=== PATIENT | female | born 2000 | race Asian ===

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

== ENCOUNTER 2019-06-02 17:39 | Emergency (ER) | payer OTHER ==
[2019-06-02 19:22] LABS: ABS Basophils 0.1 10^3/ul (0-0.2); ABS Eosinophils 0.1 10^3/ul (0-0.6); ABS Lymphocytes 2.1 10^3/ul (1.0-4.8); ABS Monocytes 0.4 10^3/ul (0-0.8); ABS Neutrophils 5.2 10^3/ul (1.5-7.7); Eosinophil % 1.1 %; Hematocrit 42 % (35-47); Hemoglobin 14.4 g/dL (12.0-16.0); Lymphocyte % 26.7 %; Mean Corpuscular HGB Conc 34 g/dL (31-36); Mean Corpuscular Hemoglobin 33 pg (27-31); Mean Corpuscular Volume 97 fL (80-97); Mean Platelet Volume 8.8 fL (7.4-10.4); Nucleated Red Blood Cells % 0.1; Platelet Count 259 10^3/uL (150-450); Red Blood Count 4.36 10^6 /uL (3.70-4.87); Red Cell Distribution Width 14 % (10-15); White Blood Count 7.9 10^3/uL (3.5-10.8)
[2019-06-02 19:42] LABS: ALT 14 U/L (7-52); AST 18 U/L (13-39); Albumin 4.7 g/dL (3.2-5.2); Albumin/Globulin Ratio 1.9 (1-3); Alkaline Phosphatase 63 U/L (34-104); Anion Gap 7 mmol/L (2-11); BUN/Creatinine Ratio 21.4 (8-20); Blood Urea Nitrogen 18 mg/dL (6-24); C Reactive Protein < 1.00 mg/L (<8.01); CO2 Carbon Dioxide 27 mmol/L (22-32); Chloride 104 mmol/L (101-111); EGFR African American 104.6 (>60); EGFR Non-African American 86.4 (>60); Globulin 2.5 g/dL (2-4); Glucose 89 mg/dL (70-100); Potassium 3.9 mmol/L (3.5-5.0); Sodium 138 mmol/L (135-145); Total Protein 7.2 g/dL (6.4-8.9)
[2019-06-02 19:46] LABS: HCG Pregnancy < 0.60 mIU/mL
--- NOTE | 2019-06-02 19:54 | ED ---
Syncope/Near Syncope - HPI Summary HPI Summary: Patient complains of episodes of lightheadedness, blurred vision and "head pressure" 5 days. Head pressure described as located at top of head and bilateral temples. Patient unaware of any pattern to onset of symptoms. Patient states she did take an Adderall for the first time 6 days ago prior to onset of symptoms. Patient has taken Advil 400 mg today with no relief. Denies fever, cough, sore throat, CP, SOB, N/V/D, abdominal pain, change in urine, change in BM, vaginal symptoms. No new medications, new supplements, new food, new environment, energy drinks, excessive caffeine, EtOH, recreational drug use. Patient does were glasses for distance. Last prescription from 2016. Medical history is none. - History Of Current Complaint Chief Complaint: EDHeadache Time Seen by Provider: 06/02/19 18:38 Hx Obtained From: Patient Onset/Duration: Gradual Onset, Lasting Days Timing: Minutes Activity At Onset: Unknown Associated Head Trauma: No Alleviating Factor(s): Spontaneous Resolution Associated Signs And Symptoms: Lightheadedness - Allergies/Home Medications Allergies/Adverse Reactions: Allergies Allergy/AdvReac Type Severity Reaction Status Date / Time No Known Allergies Allergy Verified 06/02/19 17:44 PMH/Surg Hx/FS Hx/Imm Hx Endocrine/Hematology History: Denies: Hx Anticoagulant Therapy Cardiovascular History: Denies: Hx Hypertension History: Denies: Hx Dialysis Sensory History: Denies: Hx Eye Prosthesis Opthamlomology History: Denies: Hx Legally Blind EENT History: Denies: Hx Deafness Neurological History: Denies: Hx Dementia - Immunization History Immunizations Up to Date: Yes Infectious Disease History: No Infectious Disease History: Denies: Traveled Outside the [place] in Last 30 Days - Family History Known Family History: Negative: Cardiac Disease - Social History Alcohol Use: Weekly Substance Use Type: Reports: None Smoking Status (MU): Never Smoked Tobacco Review of Systems Constitutional: Negative Positive: Blurred Vision ENT: Negative Cardiovascular: Negative Respiratory: Negative Gastrointestinal: Negative Genitourinary: Negative Musculoskeletal: Negative Skin: Negative Positive: Headache Psychological: Normal All Other Systems Reviewed And Are Negative: Yes Physical Exam - Summary Physical Exam Summary: Neuro exam normal. Triage Information Reviewed: Yes Vital Signs On Initial Exam: Initial Vitals Temp Pulse Resp BP Pulse Ox 97.8 F 69 16 123/81 99 11/22/19 17:41 06/02/19 17:41 06/02/19 17:41 06/02/19 17:41 06/02/19 17:41 Vital Signs Reviewed: Yes Appearance: Positive: Well-Appearing Skin: Positive: Warm Head/Face: Positive: Normal Head/Face Inspection Eyes: Positive: Normal ENT: Positive: Normal ENT inspection Neck: Positive: Supple Respiratory/Lung Sounds: Positive: Clear to Auscultation Cardiovascular: Positive: Normal Abdomen Description: Positive: Nontender Musculoskeletal: Positive: Normal Neurological: Positive: Normal Psychiatric: Positive: Normal AVPU Assessment: Alert - Susan Coma Scale Best Eye Response: 4 - Spontaneous Best Motor Response: 6 - Obeys Commands Best Verbal Response: 5 - Oriented Coma Scale Total: 15 Procedures - Sedation Patient Received Moderate/Deep Sedation with Procedure: No Diagnostics - Vital Signs Vital Signs Temp Pulse Resp BP Pulse Ox 06/02/19 17:41 97.8 F 69 16 123/81 99 - Laboratory Lab Results: Lab Results 06/02/19 06/02/19 Range/Units 19:15 19:15 WBC 7.9 (3.5-10.8) 10^3/uL RBC 4.36 (3.70-4.87) 10^6 /uL Hgb 14.4 (12.0-16.0) g/dL Hct 42 (35-47) % MCV 97 (80-97) fL MCH 33 H (27-31) pg MCHC 34 (31-36) g/dL RDW 14 (10-15) % Plt Count 259 (150-450) 10^3/uL MPV 8.8 (7.4-10.4) fL Neut % (Auto) 66.1 % Lymph % (Auto) 26.7 % Gooding % (Auto) 5.3 % Eos % (Auto) 1.1 % Baso % (Auto) 0.8 % Absolute Neuts (auto) 5.2 (1.5-7.7) 10^3/ul Absolute Lymphs (auto) 2.1 (1.0-4.8) 10^3/ul Absolute Monos (auto) 0.4 (0-0.8) 10^3/ul Absolute Eos (auto) 0.1 (0-0.6) 10^3/ul Absolute Basos (auto) 0.1 (0-0.2) 10^3/ul Absolute Nucleated RBC 0.0 10^3/ul Nucleated RBC % 0.1 Sodium 138 (135-145) mmol/L Potassium 3.9 (3.5-5.0) mmol/L Chloride 104 (101-111) mmol/L Carbon Dioxide 27 (22-32) mmol/L Anion Gap 7 (2-11) mmol/L BUN 18 (6-24) mg/dL Creatinine 0.84 (0.51-0.95) mg/dL Est GFR ( Amer) 104.6 (>60) Est GFR (Non-Af Amer) 86.4 (>60) BUN/Creatinine Ratio 21.4 H (8-20) Glucose 89 (70-100) mg/dL Calcium 10.0 (8.6-10.3) mg/dL Total Bilirubin 0.60 (0.2-1.0) mg/dL AST 18 (13-39) U/L ALT 14 (7-52) U/L Alkaline Phosphatase 63 (34-104) U/L C-Reactive Protein < 1.00 (<8.01) mg/L Total Protein 7.2 (6.4-8.9) g/dL Albumin 4.7 (3.2-5.2) g/dL Globulin 2.5 (2-4) g/dL Albumin/Globulin Ratio 1.9 (1-3) TSH Pending Beta HCG, Quant < 0.60 mIU/mL Result Diagrams: 06/02/19 19:15 06/02/19 19:15 Lab Statement: Any lab studies that have been ordered have been reviewed, and results considered in the medical decision making process. Course/Dx Course Of Treatment: Patient complains of episodes of lightheadedness, blurred vision and "head pressure" 5 days. Head pressure described as located at top of head and bilateral temples. Patient unaware of any pattern to onset of symptoms. Patient states she did take an Adderall for the first time 6 days ago prior to onset of symptoms. Patient has taken Advil 400 mg today with no relief. Denies fever, cough, sore throat, CP, SOB, N/V/D, abdominal pain, change in urine, change in BM, vaginal symptoms. No new medications, new supplements, new food, new environment, energy drinks, excessive caffeine, EtOH , recreational drug use. Patient does were glasses for distance. Last prescription from 2017. Medical history is none. Vital signs within normal limits. Labs unremarkable. EKG sinus bradycardia, heart rate 56, no prior on file. Patient states history of low heart rate. Patient advised to follow-up with ophthalmology for review prescription and with primary care. deferred CT brain at this tijme - Diagnoses Provider Diagnoses: Headache, Lightheadedness, Blurry vision Discharge ED - Sign-Out/Discharge Documenting (check all that apply): Patient Departure - Discharge Plan Condition: Stable Disposition: HOME Patient Education Materials: Acute Headache (ED), Blurred Vision (ED) Referrals: [facility] - Lalit LOZANO [Primary Care Provider] - Benson Merida MD [Medical Doctor] - Additional Instructions: Follow-up with ophthalmology Dr. Merida for further evaluation of vision. Alternate ibuprofen 400 mg with Tylenol 650 mg every 3 hours as needed for headache. Drinking any fluids to maintain hydration. Return to the ED for any new or worsening symptoms. - Billing Disposition and Condition Condition: STABLE Disposition: Home
[2019-06-02 20:01] VITALS: BP 97/64
[2019-06-02 20:24] LABS: TSH (Thyroid Stimulating Horm) 1.43 mcIU/mL (0.34-5.60)
== END 2019-06-02 20:03 | disposition home or self-care (01) ==
LOC: ED 17:39
DX: R42 Dizziness and giddiness (principal); R51 Headache; H53.8 Other visual disturbances
CPT/HCPCS: 36415; 80053; 84443; 84702; 85025; 86140; 93005; 99282

== ENCOUNTER 2019-09-19 18:44 | Inpatient (IN) | payer OTHER ==
[2019-09-19 19:35] LABS: Urine Appearance Cloudy; Urine Bilirubin Negative (Negative); Urine Blood Negative (Negative); Urine Color Yellow; Urine Glucose Negative (Negative); Urine Ketones Trace (Negative); Urine Nitrite Negative (Negative); Urine Protein Negative (Negative); Urine Specific Gravity 1.017 (1.010-1.030); Urine Urobilinogen Negative (Negative)
[2019-09-19 19:37] LABS: Urine Bacteria Absent (Absent); Urine Red Blood Cell Absent (Absent); Urine Squamous Epithelial Cell Present (Absent); Urine White Blood Cell 1+(6-10/hpf) (Absent)
[2019-09-19 19:39] LABS: ABS Lymphocytes 1.8 10^3/ul (1.0-4.8); ABS Monocytes 0.6 10^3/ul (0-0.8); ABS Neutrophils 6.4 10^3/ul (1.5-7.7); Eosinophil % 0.2 %; Hematocrit 42 % (35-47); Hemoglobin 14.2 g/dL (12.0-16.0); Lymphocyte % 20.5 %; Mean Corpuscular HGB Conc 34 g/dL (31-36); Mean Corpuscular Hemoglobin 34 pg (27-31); Mean Corpuscular Volume 98 fL (80-97); Mean Platelet Volume 9.4 fL (7.4-10.4); Nucleated Red Blood Cells % 0.1; Platelet Count 274 10^3/uL (150-450); Red Blood Count 4.25 10^6 /uL (3.70-4.87); Red Cell Distribution Width 14 % (10-15); White Blood Count 8.9 10^3/uL (3.5-10.8)
[2019-09-19 19:57] LABS: ALT 13 U/L (7-52); Albumin 4.6 g/dL (3.2-5.2); Albumin/Globulin Ratio 2.2 (1-3); Alkaline Phosphatase 63 U/L (34-104); BUN/Creatinine Ratio 16.9 (8-20); Blood Urea Nitrogen 14 mg/dL (6-24); CO2 Carbon Dioxide 24 mmol/L (22-32); Calcium 9.5 mg/dL (8.6-10.3); Chloride 105 mmol/L (101-111); EGFR Non-African American 86.8 (>60); Globulin 2.1 g/dL (2-4); Glucose 100 mg/dL (70-100); Sodium 139 mmol/L (135-145); Total Protein 6.7 g/dL (6.4-8.9)
[2019-09-19 20:04] LABS: HCG Pregnancy < 0.60 mIU/mL
[2019-09-19 20:06] LABS: Urine Benzodiazepine Screen None Detected (None Detect); Urine Opiates Screen None Detected (None Detect)
--- NOTE | 2019-09-19 20:16 | ED ---
Substance Abuse/Use - HPI Summary HPI Summary: Patient is a 19 y/o F presenting to [facility] via EMS for ibuprofen overdose. The patient claims that she took 200 mg ibuprofen x40 around 1500/1600. The patient claims that she had a BENJAMIN and took this ibuprofen for pain relief. She states that she initially took around 10 tablets, did not feel better, and then took 30 more tablets. Patient denies tying to hurt herself. She claims that she became worried when she realized how many tablets she took and went to [facility]. Currently, she reports BENJAMIN and abdominal pain. She states that her "body feels heavy" and that she is somnolent. Patient reports no previous attempts of self-harm. She denies PMHx, daily medications, NKDA, PSHx. Patient is currently on her menstrual cycle. She reports some tobacco and marijuana usage as well as rare alcohol usage. Home medications and allergies are reviewed. - History Of Current Complaint Chief Complaint: EDMentalHealth Stated Complaint: OVERDOSE PER EMS Time Seen by Provider: 09/19/19 19:04 Hx Obtained From: Patient Onset/Duration of Drug/ETOH Abuse: Hours Ingestion History: Type/Name Of Drug - ibuprofen, Amount Ingested - 200 mg x 40 tablets, Approximate Time Of Ingestion - 1500/1600 Overdose Characteristics: Oral Timing Of Abuse: Intermittent Character: Other - somnolent Associated Signs And Symptoms: Other: - positive - BENJAMIN, abdominal pain, somnolent , body feels "heavy"; patient denies SI - Allergies/Home Medications Allergies/Adverse Reactions: Allergies Allergy/AdvReac Type Severity Reaction Status Date / Time nut - unspecified Allergy Unknown Verified 09/19/19 22:47 Reaction Details Home Medications: Home Medications Cholecalciferol TAB* [Vitamin D TAB*] 50,000 unit PO WEEKLY 09/19/19 [History Confirmed 09/19/19] PMH/Surg Hx/FS Hx/Imm Hx Endocrine/Hematology History: Denies: Hx Anticoagulant Therapy Cardiovascular History: Denies: Hx Hypertension History: Denies: Hx Dialysis Sensory History: Denies: Hx Eye Prosthesis, Hx Legally Blind, Hx Deafness Opthamlomology History: Denies: Hx Eye Prosthesis, Hx Legally Blind Neurological History: Denies: Hx Dementia - Immunization History Immunizations Up to Date: Yes Infectious Disease History: No Infectious Disease History: Denies: Traveled Outside the [place] in Last 30 Days - Family History Known Family History: Negative: Cardiac Disease - Social History Alcohol Use: Weekly Substance Use Type: Reports: None Smoking Status (MU): Never Smoked Tobacco Review of Systems - ROS Summary Review of Systems Summary: Home Medications Medication Instructions Recorded Confirmed Type Cholecalciferol TAB* [Vitamin D 50,000 unit PO WEEKLY 09/19/19 09/19/19 History TAB*] Positive: Other - somnolent, feeling "heavy", ibuprofen overdose Positive: Abdominal Pain Positive: Headache All Other Systems Reviewed And Are Negative: Yes Physical Exam - Summary Physical Exam Summary: General: Well-developed, Well-nourished female. No acute distress. Somnolent. HEENT: Normocephalic, Atraumatic. Eyes: Conjuctiva normal, PERRL. Oropharynx: Clear, mucous membranes moist, (-) exudates. Neck: Soft, FROM, (-) lymphadenopathy, (-) thyromegaly, (-) JVD. Cardiovascular: Normal sinus rhythm, (-) murmur. Lungs: Clear to auscultation bilaterally (-) wheezes, (-) rales, (-) rhonchi. Abdomen: Soft, non-tender, non-distended, (-) organomegaly, normal bowel sounds. Back: (-) CVA tenderness Extremities: No edema. Skin: Warm, dry, (-) rash. Neuro: Alert and oriented x3, moves all extremities equally. No ataxia. No gait disturbance. No sensory deficit. Normal strength, normal sensation. Psychiatric: Mood normal, affect normal Triage Information Reviewed: Yes Vital Signs On Initial Exam: Initial Vitals Temp Pulse Resp BP Pulse Ox 98.6 F 72 14 136/85 99 09/19/19 18:54 09/19/19 18:54 09/19/19 18:54 09/19/19 18:54 09/19/19 18:54 Vital Signs Reviewed: Yes Procedures - Sedation Patient Received Moderate/Deep Sedation with Procedure: No Diagnostics - Vital Signs Vital Signs Temp Pulse Resp BP Pulse Ox 09/19/19 19:20 62 127/69 99 09/19/19 19:11 69 97 09/19/19 18:54 98.6 F 72 14 136/85 99 - Laboratory Lab Results: Lab Results 09/19/19 09/19/19 09/19/19 Range/Units 19:07 19:07 19:30 WBC 8.9 (3.5-10.8) 10^3/uL RBC 4.25 (3.70-4.87) 10^6 /uL Hgb 14.2 (12.0-16.0) g/dL Hct 42 (35-47) % MCV 98 H (80-97) fL MCH 34 H (27-31) pg MCHC 34 (31-36) g/dL RDW 14 (10-15) % Plt Count 274 (150-450) 10^3/uL MPV 9.4 (7.4-10.4) fL Neut % (Auto) 72.4 % Lymph % (Auto) 20.5 % Sterling % (Auto) 6.4 % Eos % (Auto) 0.2 % Baso % (Auto) 0.5 % Absolute Neuts (auto) 6.4 (1.5-7.7) 10^3/ul Absolute Lymphs (auto) 1.8 (1.0-4.8) 10^3/ul Absolute Monos (auto) 0.6 (0-0.8) 10^3/ul Absolute Eos (auto) 0.0 (0-0.6) 10^3/ul Absolute Basos (auto) 0.0 (0-0.2) 10^3/ul Absolute Nucleated RBC 0.0 10^3/ul Nucleated RBC % 0.1 Sodium (135-145) mmol/L Potassium Chloride (101-111) mmol/L Carbon Dioxide (22-32) mmol/L Anion Gap BUN (6-24) mg/dL Creatinine (0.51-0.95) mg/dL Est GFR ( Amer) (>60) Est GFR (Non-Af Amer) (>60) BUN/Creatinine Ratio (8-20) Glucose (70-100) mg/dL Calcium (8.6-10.3) mg/dL Total Bilirubin (0.2-1.0) mg/dL AST ALT (7-52) U/L Alkaline Phosphatase (34-104) U/L Total Protein (6.4-8.9) g/dL Albumin (3.2-5.2) g/dL Globulin (2-4) g/dL Albumin/Globulin Ratio (1-3) TSH Beta HCG, Quant mIU/mL Urine Color Yellow Urine Appearance Cloudy Urine pH 6.0 (5-9) Ur Specific Sudan 1.017 (1.010-1.030) Urine Protein Negative (Negative) Urine Ketones Trace A (Negative) Urine Blood Negative (Negative) Urine Nitrate Negative (Negative) Urine Bilirubin Negative (Negative) Urine Urobilinogen Negative (Negative) Ur Leukocyte Esterase Trace A (Negative) Urine WBC (Auto) 1+(6-10/hpf) A (Absent) Urine RBC (Auto) Absent (Absent) Ur Squamous Epith Cells Present A (Absent) Amorphous Crystals Present A (Absent) Urine Bacteria Absent (Absent) Urine Glucose Negative (Negative) Salicylates Urine Opiates Screen None detected (None Detect) Acetaminophen Ur Barbiturates Screen None detected (None Detect) Ur Phencyclidine Scrn None detected (None Detect) Ur Amphetamines Screen None detected (None Detect) U Benzodiazepines Scrn None detected (None Detect) Urine Cocaine Screen None detected (None Detect) U Cannabinoids Screen None detected (None Detect) Serum Alcohol 09/19/19 Range/Units 19:30 WBC (3.5-10.8) 10^3/uL RBC (3.70-4.87) 10^6 /uL Hgb (12.0-16.0) g/dL Hct (35-47) % MCV (80-97) fL MCH (27-31) pg MCHC (31-36) g/dL RDW (10-15) % Plt Count (150-450) 10^3/uL MPV (7.4-10.4) fL Neut % (Auto) % Lymph % (Auto) % Sterling % (Auto) % Eos % (Auto) % Baso % (Auto) % Absolute Neuts (auto) (1.5-7.7) 10^3/ul Absolute Lymphs (auto) (1.0-4.8) 10^3/ul Absolute Monos (auto) (0-0.8) 10^3/ul Absolute Eos (auto) (0-0.6) 10^3/ul Absolute Basos (auto) (0-0.2) 10^3/ul Absolute Nucleated RBC 10^3/ul Nucleated RBC % Sodium 139 (135-145) mmol/L Potassium Pending Chloride 105 (101-111) mmol/L Carbon Dioxide 24 (22-32) mmol/L Anion Gap Pending BUN 14 (6-24) mg/dL Creatinine 0.83 (0.51-0.95) mg/dL Est GFR ( Amer) 105.0 (>60) Est GFR (Non-Af Amer) 86.8 (>60) BUN/Creatinine Ratio 16.9 (8-20) Glucose 100 (70-100) mg/dL Calcium 9.5 (8.6-10.3) mg/dL Total Bilirubin 0.50 (0.2-1.0) mg/dL AST Pending ALT 13 (7-52) U/L Alkaline Phosphatase 63 (34-104) U/L Total Protein 6.7 (6.4-8.9) g/dL Albumin 4.6 (3.2-5.2) g/dL Globulin 2.1 (2-4) g/dL Albumin/Globulin Ratio 2.2 (1-3) TSH Pending Beta HCG, Quant < 0.60 mIU/mL Urine Color Urine Appearance Urine pH (5-9) Ur Specific Sudan (1.010-1.030) Urine Protein (Negative) Urine Ketones (Negative) Urine Blood (Negative) Urine Nitrate (Negative) Urine Bilirubin (Negative) Urine Urobilinogen (Negative) Ur Leukocyte Esterase (Negative) Urine WBC (Auto) (Absent) Urine RBC (Auto) (Absent) Ur Squamous Epith Cells (Absent) Amorphous Crystals (Absent) Urine Bacteria (Absent) Urine Glucose (Negative) Salicylates Pending Urine Opiates Screen (None Detect) Acetaminophen Pending Ur Barbiturates Screen (None Detect) Ur Phencyclidine Scrn (None Detect) Ur Amphetamines Screen (None Detect) U Benzodiazepines Scrn (None Detect) Urine Cocaine Screen (None Detect) U Cannabinoids Screen (None Detect) Serum Alcohol Pending Result Diagrams: 09/19/19 19:30 09/19/19 20:50 Lab Statement: Any lab studies that have been ordered have been reviewed, and results considered in the medical decision making process. - EKG 194 Cardiac Rate: Bradycardia - rate of 57 BPM EKG Rhythm: Sinus Bradycardia Summary of EKG Findings: EKG showed sinus bradycardia with rate of 57 BPM, no STEMI. Dr. Finn has reviewed and interpreted this EKG. Re-Evaluation - Re-Evaluation First Eval Re-Evaluation Time: 19:28 Comment: Per nurse's note, "EKG, Tylenol level, Aspirin Level, Alcohol Level, CMP. Antiemetics as needs and IVF as needed. Assess Pupils and BS. Per Poison Control recommended that pt be observed for 6hr from time time she presented at [facility] and back to baseline. Poison Control advised that pt can have n/v and in severe cases metabolic acidosis". Patient is reported to have arrived at [facility] around 1910 09/19/19. Course/Dx - Course Course Of Treatment: 19-year-old female presents by ambulance after overdose. Patient states she had a severe headache and took 10 ibuprofen tablets earlier. Headache did not go away in a couple hours later she took more tablets. She states she realized she had taken a lots of pills. Counted how many tablets were left in the bottle and realize she had taken 40 total. She called the [facility] and was referred here. Patient denies any vomiting. She denies any suicidal ideation. Physical exam demonstrates no significant findings. Patient is sleepy. No significant abnormal laboratory findings. Patient seen by [facility] and referred for [facility] admission. During ED course , patient received Protonix 40 mg PO. - Diagnoses Provider Diagnoses: Depressive disorder - Physician Notifications Discussed Care Of Patient With: Brandon Gray Time Discussed With Above Provider: 02:30 Instructed by Provider To: Other - Patient's case had been reviewed by Dr. Gray, patient will be admitted to [facility] psych. Discharge ED - Sign-Out/Discharge Documenting (check all that apply): Patient Departure - admit All imaging exams completed and their final reports reviewed: No Studies - Discharge Plan Condition: Improved Disposition: PSYCHIATRIC FACILITY-[facility] - Billing Disposition and Condition Condition: IMPROVED Disposition: Psychiatric Facility [facility] - Attestation Statements Document Initiated by Scribe: Yes Documenting Scribe: BLANCA BURROUGHS Provider For Whom Jen is Documenting (Include Credential): RACHEL FINN MD Scribe Attestation: BLANCA Lyles, scribed for RACHEL FINN MD on 09/23/19 at 0211. Scribe Documentation Reviewed: Yes Provider Attestation: The documentation as recorded by the scribBLANCA guevara accurately reflects the service I personally performed and the decisions made by me, RACHEL FINN MD Status of Scribe Document: Viewed
[2019-09-19 20:20] LABS: Acetaminophen < 15 mcg/mL; Alcohol < 10 mg/dL (<10); Salicylate < 2.50 mg/dL (<30)
[2019-09-19 20:36] LABS: TSH (Thyroid Stimulating Horm) 0.83 mcIU/mL (0.34-5.60)
[2019-09-19 20:44] LABS: Anion Gap 10 mmol/L (2-11)
[2019-09-19 21:13] LABS: Potassium Redraw 4.1 mmol/L (3.5-5.0)
[2019-09-19] MEDS ORDERED: Pantoprazole IV* 40 MG IV ONE (22:15)
[2019-09-19] MEDS ORDERED: Pantoprazole TAB * 40 MG TAB PO ONE (22:34)
[2019-09-20] MEDS ORDERED: Al Hydrox/Mg Hydrox/Simet LIQ* 30 ML UDC PO PRN (06:23)
[2019-09-20] MEDS ORDERED: Acetaminophen TAB* 325 MG PO PRN (06:23)
[2019-09-20] MEDS: Vitamin THERAPEUTIC TAB PO SCH (10:21)
--- NOTE | 2019-09-20 12:08 | ADMNOTE ---
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 Exam Appearance: Healthy Appearing Hygiene: Normal Psychomotor Activities: Normal Exhibits Abnormal Movement: No Attitude and Relatedness: Cooperative Eye Contact: Good - Speech Quality: Unpressured Latencies: Normal Quantity: Appropriate Observed Affect: Good Affect Consistent with: Euthymia Patient's Thought Process: Coherent, Goal Directed Thought Content: No Passive Wish - Patient denies Experiencing Hallucinations: No, Sensorium is Clear Orientation: Yes Intact Impulse Control: Impaired Insight and Judgement: Impaired Impression - Impression Clinical Impression: Juaquin Villalobos, who is frequently picking at her lips throughout the interview, reports that she has been feeling fatigued since returning from August. She spent much of her time over break partying with friends in [facility], she was taking Adderall, Cocaine, and marijuana. During this time, she had a two day period where she did not sleep. Upon returning to school, she had poor sleep for about two weeks and was feeling very fatigued. During this two week period , she struck up a friendship with a male who, "gave me attention". She was cooking for him every day which she found beneficial because she felt that it made her eating disorder "go away". Juaquin Villalobos started to feel that this friend was distancing himself from her and this made her feel sad and out of control. She states that taking the Ibuprofen was "to make the pain go away" and that she thought that, "the worst thing that could happen is that I pass out". She had apparently researched overdosing on this medication before coming to that conclusion. She went to [facility]. She found to have a low vitamin D level and placed on supplements for this. Merits Inpatient Hospitalization: Yes Plan - Treatment Plan Medications: Current Medications Acetaminophen (Tylenol Tab*) 650 mg PO Q4H PRN PRN Reason: PAIN or TEMP > 101 F Al Hydrox/Mg Hydrox/Simethicone (Maalox Plus*) 30 ml PO Q4H PRN PRN Reason: INDIGESTION Multivitamins (Theragran Tab*) 1 tab PO DAILY JOSAFAT Last Admin: 09/20/19 10:21 Dose: Not Given
[2019-09-20] MEDS ORDERED: Escitalopram * 10 MG TAB PO SCH (15:00)
--- NOTE | 2019-09-20 19:13 | HP ---
HISTORY AND PHYSICAL: DATE OF ADMISSION: 09/20/19 PROVIDER: Mihaela English NP, in Psychiatry. SUPERVISING PHYSICIAN: Ravindra Arrieta MD * (DICTATED BY MIHAELA ENGLISH NP) JUSTIFICATION FOR ADMISSION: The patient is in need of 24-hour supervision and care secondary to suicidal ideation, status post ibuprofen overdose. CHIEF COMPLAINT: "[place] is not the happiest place on earth... no one is going to care." HISTORY OF PRESENT ILLNESS: Juaquin Villalobos is a 19-year-old [place] student at [employer] who has a history of eating disorder and seeing a counselor, who was brought to the ED by EMS after she presented to the counseling center at [place] and reported to the provider that she had taken 40 tablets of ibuprofen. She was admitted on a 9.39 status. Juaquin Villalobos, who is frequently picking at her lips throughout the interview, reports that she has been feeling fatigued since returning from August. She spent much of her time over break partying with friends in [facility]. She was taking Adderall, cocaine, and marijuana. During this time, she had a 2-day period where she did not sleep. Upon returning to school, she had poor sleep for about 2 weeks and was feeling very fatigued. During this 2-week period, she struck up a friendship with a male, who "gave me attention." She was cooking with him every day, which she found beneficial because she felt that it made her eating disorder "go away." Juaquin Villalobos started to feel that this friend was distancing himself from her and this made her feel sad and out of control. She states that taking the ibuprofen was "to make the pain go away" and she thought that "the worst thing that could happen is that I pass out." She had apparently researched overdosing on the medication before coming to that conclusion. 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 She is struggling with disrupted sleep, decreased interest, feelings of guilt regarding her eating disorder as well as her inability to succeed the way she wants to at [employer]. Her energy is reduced. She cannot concentrate. Her appetite is disrupted at least by the eating disorder and she had suicidal ideation, which she acknowledges only in an oblique sense. PAST PSYCHIATRIC HISTORY: She has no previous admissions for any reasons to any hospitals. She does see a woman named Jackie at [facility] once every 2 weeks and once at a walk-in after the overdose she took of ibuprofen. She has never been on any medications for psychiatry. TRAUMA HISTORY: Denied. FORENSIC ISSUES: She has no access to weapons and has no history of violence. PAST MEDICAL HISTORY: She was noted to have low vitamin D and was given vitamin D every week, which is due on Wednesday. The only illness she refers to in her life is a flu that she had when she was in her youth. ALLERGIES: She has no known drug allergies. FAMILY HISTORY: She states her father has recently developed a disorder, but she does not know what the name of it is in Mongolian. She states the rest of her family is healthy. SOCIAL HISTORY: She is from [facility]. Her father and mother are still together. She has a sister who is younger than she is by 5 years. She denies having a history of abuse. She is currently enrolled in [employer] as a sophomore at age 19. She is not or partnered. She has a single room in the dorms, but she has many friends and she rapidly named family members who would be in support of her as well. She states that she is not employed, but also references a "kind of job" at doing [employer]. She has never been in the . She has no legal problems. REVIEW OF SYSTEMS: Juaquin Villalobos reports feeling fatigued. She denies shortness of breath, heat or cold intolerance, chest pain or abdominal pain. She denies neurological symptoms. She denies fevers or changes in weight. PHYSICAL EXAMINATION GENERAL: Well-developed, well-nourished female, in no acute distress, somnolent. VITAL SIGNS: On 09/20/19 at 0520, temperature was 98.3, pulse 60, respirations 16, O2 sat on room air 99%, blood pressure 126/80. HEENT: Normocephalic, atraumatic. Eyes: Conjunctivae normal. PERRL. Oropharynx clear. Mucous membranes moist. No exudates. NECK: Soft. Full range of motion. No lymphadenopathy. No thyromegaly. No JVD. LUNGS: Clear to auscultation bilaterally. No wheezes. No rales. No rhonchi. CARDIOVASCULAR: Normal sinus rhythm. No murmur. ABDOMEN: Soft, nontender, nondistended. No organomegaly. Positive bowel sounds. BACK: No CVA tenderness. EXTREMITIES: No edema. NEURO: Alert and oriented x4. Moves all extremities equally. No ataxia. No gait disturbance. No sensory deficit. Normal strength. Normal sensation. SKIN: Warm, dry. No rash. LABORATORY DATA: Most data are within normal limits. Exceptions include MCV high at 98, MCH high at 34. Urinalysis shows ketones trace, leukocyte esterase trace, white blood cells +1, squamous epithelial cells present, amorphous crystals present. MENTAL STATUS EXAMINATION: Juaquin Villalobos is a 5-feet 4-inch, 106-pound female with dark hair pulled up in a ponytail. Her grooming is adequate. She is calm and cooperative. Her speech is of normal rate and tone. Her volume is soft and low. Her mood is dysthymic. She has a full range of affect. Her thought processes appear to be normal. Thought content is free of delusions. She states she is not homicidal or suicidal at this point, although she did have a suicide attempt within the last 24 hours. She is not experiencing hallucinations. Her insight is fair. Her judgment is fair. She is alert and oriented x4. DIAGNOSES: [place] I: Depressive disorder, anxiety disorder. IMPRESSION: Juaquin Villalobos is a 19-year-old female who is a sophomore at [employer] , who comes to the hospital by ambulance after overdosing on forty 200 mg ibuprofen tablets with the supposed hope of falling asleep, yet description of many stressors that she is not processing to be as severe as they are. PLAN: The patient is admitted to the adult behavioral health unit and placed on q.15-minute checks for her own safety. She is encouraged to participate in supportive milieu, individual and group therapies. Estimated length of stay is 1 to 3 days. We will titrate medications to efficacy, suggesting the start of Lexapro, and monitor for mood and thought content. Discharge planning will include family involvement, her father has already phoned, and outpatient providers. MIHAELA ENGLISH, JESSICA [id number]/[facility] #: [id number] DAILY
[2019-09-21 09:17] VITALS: BP 106/76
[2019-09-21] MEDS: Vitamin THERAPEUTIC TAB PO SCH (10:16)
--- NOTE | 2019-09-21 23:56 | DS ---
DISCHARGE SUMMARY: DATE OF ADMISSION: 09/20/19 DATE OF DISCHARGE: 09/21/19 PROVIDER: Mihaela English NP, in Psychiatry. SUPERVISING PHYSICIAN: Ravindra Arrieta MD * (DICTATED BY MIHAELA ENGLISH NP ) DIAGNOSIS: Adjustment disorder with anxiety. CONDITION AT THE TIME OF DISCHARGE: Improved, psychiatrically cleared, stable. Juaquin Villalobos participated in a few groups and was social with peers. Her father is agreeable to discharge. Juaquin Villalobos is eager for discharge. She has done well here psychiatrically. She tolerated being here on the unit. She did not start any medications. She will be attending [employer]. MENTAL STATUS EXAM: At the time of discharge, Juaquin Villalobos is calm, cooperative and makes good eye contact. She is alert and oriented x4. Her grooming is good. Her speech pace is normal. Her thought processes are logical. She is not psychotic or delusional. She denies AH, VH, SI, and HI. Insight and judgment are fair. Willing to follow up and urged to see a therapist. DISCHARGE INSTRUCTIONS TO THE PATIENT: A. Medications: Vitamin D continued from [facility]. B. Diet is regular. C. Activities as tolerated. She is a nonsmoker. There are no studies pending at the time of discharge. D. Followup care: She has an appointment at [facility] with Rebeca Tee on 09/22/19 at 3 p.m. She also has an appointment for BASICS with Rose on 09/25/19 at 9 a.m. E. Disposition: She is being discharged back to her dorm room near [employer] [facility] [employer] [facility]. F. Substance use followup is not indicated. HOSPITAL COURSE: Part A: Chief Complaint: "[place] is not the happiest place on earth...no one is going to care." Juaquin Villalobos is a 19-year-old [place] student at [employer] who has a history of eating disorder and seeing a counselor, who was brought to the ED by EMS after she presented to the counseling center at [place] and reported to the provider that she had taken 40 tablets of ibuprofen. She was admitted on a 9.39 status. Juaquin Villalobos who is frequently picking at her lips throughout the interview, reports that she has been feeling fatigued since returning from August. She spent much of her time over break partying with friends in [facility]. Upon returning to school, she had poor sleep for about 2 weeks and was feeling very fatigued. During this 2-week period, she struck up a friendship with a male, who "gave me attention." She was cooking with him every day, which she found beneficial because she felt that it made her eating disorder "go away." Juaquin Villalobos started to feel that this friend was distancing himself from her and this made her feel sad and out of control. She states that taking the ibuprofen was "to make the pain go away" and she thought that "the worst thing that could happen is that I pass out." She had apparently researched overdosing on the medication before coming to that conclusion. 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 She is struggling with disruptive sleep, decreased interest, feelings of guilt regarding her eating disorder as well as her inability to succeed the way she wants to at [employer]. Her energy is reduced. She cannot concentrate. Her appetite is disrupted at least by the eating disorder and she had suicidal ideation, which she acknowledges only in an oblique sense. Part B: Psychiatric treatment was rendered. Juaquin Villalobos was admitted to the adult behavioral unit and placed on 15 minute checks for safety. She was safe on all checks. Juaquin Villalobos did well on the unit and with encouragements did go to groups. She interacted with peers well, although many of them were not functioning as well as she does. I did offer her the possibility that she could take medication, specifically Lexapro. I offered the idea that it would reduce her depression and anxiety as well as reduce her impulsivity. She was very clear that she did not want to start medications. Still, I think the opportunity is there should her ability to function deteriorate further. I did speak with her father on the phone on 09/20/19. He was very concerned about her and was prepared to come to [facility] to check up on his daughter. I reassured him that that was not necessary at this time, and that Juaquin Villalobos would likely be discharged within a few days. Indeed, she is discharged , having stayed a bit over 24 hours. She is improved. She speaks of her experience with some regret and some odd amusement that she made such an impulsive and dangerous choice. It is unclear whether she appreciates the level of danger she was in. It also appears that she would benefit significantly from working on interpersonal skills as well as individual coping strategies. She is no longer suicidal. She is future oriented. She was very distressed that she did not get to class or have opportunity to talk to her professors. We did arrange for her to use her computer to e-mail her professors and she will be returning to class tomorrow. MIHAELA ENGLISH, JESSICA [id number]/[facility] #: [id number] DAILY
== END 2019-09-21 13:15 | disposition home or self-care (01) | DRG 882 ==
LOC: ED 18:44 → BSU 09-20 03:36
PROVIDERS: ADMIT Psychiatry & Neurology Psychiatry; ATTEND Psychiatry & Neurology Psychiatry
DX: F43.22 Adjustment disorder with anxiety (principal); Z68.1 Body mass index [BMI] 19.9 or less, adult; F50.9 Eating disorder, unspecified; T14.91XA Suicide attempt, initial encounter; T39.312A Poisoning by propionic acid derivatives, intentional self-harm, initial encounter; E55.9 Vitamin D deficiency, unspecified; Y92.214 College as the place of occurrence of the external cause
CPT/HCPCS: 36415; 80053; 80307; 80320; 80329; 81003; 81015; 84443; 84702; 85025; 87086; 93005; 99222; 99238; 99284; A9270-GY; G0480